=== PATIENT | female | born 1960 | race Caucasian/White ===

== ENCOUNTER 2016-12-15 18:41 | Emergency (ER) | payer BC ==
[~2016-12-15] VITALS: Ht 162.6 cm; Wt 68.0 kg
[~2016-12-15 18:41] MED LIST: ALPR1TAB3 PO; CREON6 PO; FAMO20 PO; FLON0.053; GABA600T PO; GAS125CH PO; HYDR-3580 PO; MILKSUS5 PO; ONDA1TAB17 PO; PROT40TA PO; SENN1TAB11 PO; SUVO1TAB4 PO; TIZA4 PO
[2016-12-15 18:49] VITALS: BP 139/63; PULSE 61; RESP 16; TEMP 98.1; O2SAT 97
[2016-12-15] MEDS ORDERED: SODIUM CHLOR 0.9% 1000 ML INJ 1,000 ML IV SCH (19:20)
[2016-12-15] MEDS ORDERED: LIDOCAINE VISCOUS 2% SOLN 15 ML UDC PO ONE (19:30)
[2016-12-15] MEDS ORDERED: MORPHINE SULFATE 8 MG/ML INJ IV PUSH ONE (19:30)
[2016-12-15] MEDS ORDERED: ALUMINUM/MAGNESIUM/SIMETH 30 ML CUP PO ONE (19:30)
[2016-12-15] MEDS ORDERED: SODIUM CHLORIDE 0.9% FLUSH 10 ML FLUSH IV FLUSH PRN (19:30)
[2016-12-15] MEDS ORDERED: ONDANSETRON HCL 4 MG/2 ML VIAL IVP ONE (19:30)
[2016-12-15 19:32] VITALS: BP 148/64; PULSE 60; RESP 18; O2SAT 98
[2016-12-15] MEDS ORDERED: HYDR-3580 PO (19:32)
[2016-12-15] MEDS ORDERED: SUVO1TAB4 PO (19:32)
[2016-12-15] MEDS ORDERED: ZOFR4TAB PO (19:32)
[2016-12-15] MEDS ORDERED: FLUT1SPR5 EACH NARE (19:32)
[2016-12-15] MEDS ORDERED: FAMO1TAB37 PO (19:32)
[2016-12-15] MEDS ORDERED: CREO3000 PO (19:32)
[2016-12-15] MEDS ORDERED: PROT40TA PO (19:32)
[2016-12-15] MEDS ORDERED: SENN8.6T36 PO (19:32)
[2016-12-15] MEDS ORDERED: ZANA4CAP PO (19:32)
[2016-12-15] MEDS ORDERED: ALPR1TAB3 PO (19:32)
[2016-12-15] MEDS ORDERED: GABA600T PO (19:32)
[2016-12-15 19:38] LABS: AUTOMATED NEUTROPHIL # 6.7 TH/MM3 (1.8-7.7); BASOPHIL # 0.1 TH/MM3 (0-0.2); BASOPHIL % 0.8 % (0.0-2.0); EOSINOPHIL # 0.1 TH/MM3 (0-0.4); EOSINOPHIL % 1.4 % (0.0-4.0); HEMATOCRIT 33.4 % (35.0-46.0); LYMPHOCYTE # 2.1 TH/MM3 (1.0-4.8); MEAN CORPUSCULAR HEMOGLOBIN 22.9 PG (27.0-34.0); MEAN CORPUSCULAR HGB CONC 31.8 % (32.0-36.0); MONO % 4.8 % (0.0-8.0); PLATELET COUNT 362 TH/MM3 (150-450); RED BLOOD COUNT 4.63 MIL/MM3 (4.00-5.30); RED CELL DISTRIBUTION WIDTH 16.9 % (11.6-17.2); WHITE BLOOD COUNT 9.5 TH/MM3 (4.0-11.0)
[2016-12-15 19:41] LABS: HEMO FLAGS AUTO DIFF
[2016-12-15 19:56] LABS: CHLORIDE 106 MEQ/L (98-107); POTASSIUM 3.6 MEQ/L (3.5-5.1); SODIUM (NA) 141 MEQ/L (136-145)
[2016-12-15 20:00] LABS: ANION GAP 9 MEQ/L (5-15); BICARBONATE 26.5 MEQ/L (21.0-32.0)
[2016-12-15 20:01] LABS: BLOOD UREA NITROGEN 13 MG/DL (7-18)
[2016-12-15 20:03] LABS: ALT (GPT) 48 U/L (10-53); AST (GOT) 35 U/L (15-37); GLOMERULAR FILTRATION RATE 81 ML/MIN (>89)
[2016-12-15 20:05] LABS: TOTAL BILIRUBIN ADULT 0.3 MG/DL (0.2-1.0)
[2016-12-15 20:06] LABS: ALKALINE PHOSPHATASE 157 U/L (45-117)
[2016-12-15 20:21] LABS: PLATELET ESTIMATE SMEAR NORMAL (NORMAL); PLATELET MORPHOLOGY NORMAL (NORMAL); SCAN/DIFF AUTO DIFF CONFIRMED
[2016-12-15 20:53] LABS: GLUCOSE,URINE NEG (NEG); KETONE, URINE NEG (NEG); NITRITE,URINE NEG (NEG)
[2016-12-15 20:59] LABS: BLOOD, URINE TRACE (NEG)
[2016-12-15 21:01] LABS: METHOD OF COLLECTION CLEAN CATCH
[2016-12-15 21:02] LABS: WBC, URINE 0-2 /hpf (0-5)
[2016-12-15 21:03] LABS: COMMENT (UR) CULT NOT INDICATED; CULTURE IF INDICATED CULT NOT INDICATED; SQUAMOUS EPITHELIAL CELL URINE 0-2 /hpf (0-5)
[2016-12-15 21:15] VITALS: BP 148/69; PULSE 66; RESP 18; O2SAT 98
--- NOTE | 2016-12-15 21:21 | PD ---
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 no vomiting or fever. "pain pills" at home relieved pain marginally. timing constant. severity mild. quality is like "punching" in the gut. duration of nausea 3 days. PFSH Past Medical History Hx Anticoagulant Therapy: No Asthma: No Autoimmune Disease: No Anxiety: Yes Depression: No Heart Rhythm Problems: No Cancer: No Cardiovascular Problems: No High Cholesterol: No Chemotherapy: No Chest Pain: No Congestive Heart Failure: No COPD: No Cerebrovascular Accident: No Diabetes: No Diminished Hearing: No Endocrine: No Gastrointestinal Disorders: Yes GERD: Yes Genitourinary: No Headaches: No Hiatal Hernia: No Hypertension: No Immune Disorder: No Implanted Vascular Access Dvce: No Kidney Stones: No Musculoskeletal: Yes Neurologic: Yes Psychiatric: Yes Reproductive: No Respiratory: Yes (Allergies) Immunizations Current: Yes Migraines: No Pancreatitis: Yes Radiation Therapy: No Renal Failure: No Seizures: Yes Sleep Apnea: No Thyroid Disease: No Ulcer: No Tetanus Vaccination: Unknown Influenza Vaccination: Yes ?: Not Menopausal: Yes Tubal Ligation: Yes Past Surgical History Abdominal Surgery: Yes (LAP DENISE IN 04/2011 THEN ABD RECONSTRUCTION@ [facility] 06/07) Arteriovenous Shunt: No Cardiac Surgery: No Section: Yes (X 2) Cholecystectomy: Yes (APRIL/2011) Ear Surgery: No Eye Surgery: No Genitourinary Surgery: No Gynecologic Surgery: Yes (UTERINE ABLATION ) Hysterectomy: No Insulin Pump: No Joint Replacement: No Neurologic Surgery: No Oral Surgery: No Pacemaker: No Thoracic Surgery: No Other Surgery: Yes (JULIA-EN-Y, R AND LEFT GANGLION CYST) Social History Alcohol Use: No Tobacco Use: No (NEVER) Substance Use: No Allergies-Medications (Allergen,Severity, Reaction): Coded Allergies: Sulfa (Sulfonamide Antibiotics) (Unverified Allergy, Severe, RASH, ) codeine (Unverified Allergy, Severe, HYPER, 12/15/16) adhesive (Unverified Allergy, Intermediate, RASH, 12/15/16) *MDRO Multi-Drug Resistant Organism (Unverified Adverse Reaction, Unknown , 12/15/16) 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 Reported Meds & Prescriptions Reported Meds & Active Scripts Active Reported Zanaflex (Tizanidine HCl) 4 Mg Cap 4 Mg PO TID Belsomra (Suvorexant) 20 Mg Tab 20 Mg PO HS Protonix (Pantoprazole Sodium) 40 Mg Tab 40 Mg PO DAILY Zofran (Ondansetron HCl) 4 Mg Tab 4 Mg PO Q8HR PRN Creon (Pancrelipase) 3,000-9,500-15,000 Units Cap 1 Cap PO TIDPC Hydrocodone-Acetaminophen 7.5-325 mg Tab 1 Tab PO Q6H PRN Gabapentin 600 Mg Tab 600 Mg PO TID Flonase Nasal [place] (Fluticasone Nasal [place]) 50 Mcg/Act [place] 50 Mcg EACH NARE BID Pepcid (Famotidine) 20 Mg Tab 20 Mg PO HS Senna-Tabs (Sennosides) 8.6 Mg Tab 8.6 Mg PO BID Alprazolam 1 Mg Tab 1 Mg PO BID PRN Review of Systems Except as stated in HPI: all other systems reviewed are Neg General / Constitutional: No: Fever Physical Exam Narrative GENERAL: 56 yo F wnwd, mild distress 2/2 pain, pleasant SKIN: Warm and dry. HEAD: Atraumatic. Normocephalic. EYES: Pupils equal and round. No scleral icterus. No injection or drainage. ENT: No nasal bleeding or discharge. Mucous membranes pink and moist. NECK: Trachea midline. No JVD. CARDIOVASCULAR: Regular rate and rhythm. RESPIRATORY: No accessory muscle use. Clear to auscultation. Breath sounds equal bilaterally. GASTROINTESTINAL: Soft. minimal TTP epigastrium. MUSCULOSKELETAL: Extremities without clubbing, cyanosis, or edema. No obvious deformities. NEUROLOGICAL: Awake and alert. No obvious cranial nerve deficits. Motor grossly within normal limits. Five out of 5 muscle strength in the arms and legs. Normal speech. PSYCHIATRIC: Appropriate mood and affect; insight and judgment normal. Data Data Last Documented VS Vital Signs Date Time Temp Pulse Resp B/P (MAP) Pulse Ox O2 Delivery O2 Flow Rate FiO2 12/15/16 21:15 66 18 148/69 (95) 98 Room Air 12/15/16 18:49 98.1 VS reviewed Orders Orders Complete Blood Count With Diff (12/15/16 19:20) Comprehensive Metabolic Panel (12/15/16 19:20) Lipase (12/15/16 19:20) Iv Access Insert/Monitor (12/15/16 19:20) Ecg Monitoring (12/15/16 19:20) Oximetry (12/15/16 19:20) Ondansetron Inj (Zofran Inj) (12/15/16 19:30) Sodium Chlor 0.9% 1000 Ml Inj (Ns 1000 M (12/15/16 19:20) Sodium Chloride 0.9% Flush (Ns Flush) (12/15/16 19:30) Morphine Inj (Morphine Inj) (12/15/16 19:30) Al-Mag Hy-Si 40-40-4 Mg/Ml Liq (Mag-Al P (12/15/16 19:30) Lidocaine 2% Viscous (Xylocaine 2% Visco (12/15/16 19:30) Urinalysis - C+S If Indicated (12/15/16 20:31) Ed Discharge Order (12/15/16 21:19) Labs Laboratory Tests Test 12/15/16 19:30 12/15/16 20:45 White Blood Count 9.5 TH/MM3 Red Blood Count 4.63 MIL/MM3 Hemoglobin 10.6 GM/DL Hematocrit 33.4 % Mean Corpuscular Volume 72.0 FL Mean Corpuscular Hemoglobin 22.9 PG Mean Corpuscular Hemoglobin Concent 31.8 % Red Cell Distribution Width 16.9 % Platelet Count 362 TH/MM3 Mean Platelet Volume 7.5 FL Neutrophils (%) (Auto) 71.0 % Lymphocytes (%) (Auto) 22.0 % Monocytes (%) (Auto) 4.8 % Eosinophils (%) (Auto) 1.4 % Basophils (%) (Auto) 0.8 % Neutrophils # (Auto) 6.7 TH/MM3 Lymphocytes # (Auto) 2.1 TH/MM3 Monocytes # (Auto) 0.5 TH/MM3 Eosinophils # (Auto) 0.1 TH/MM3 Basophils # (Auto) 0.1 TH/MM3 CBC Comment AUTO DIFF Differential Comment AUTO DIFF CONFIRMED Platelet Estimate NORMAL Platelet Morphology Comment NORMAL Blood Urea Nitrogen 13 MG/DL Creatinine 0.74 MG/DL Random Glucose 95 MG/DL Total Protein 7.4 GM/DL Albumin 3.8 GM/DL Calcium Level 8.9 MG/DL Alkaline Phosphatase 157 U/L Aspartate Amino Transf (AST/SGOT) 35 U/L Alanine Aminotransferase (ALT/SGPT) 48 U/L Total Bilirubin 0.3 MG/DL Sodium Level 141 MEQ/L Potassium Level 3.6 MEQ/L Chloride Level 106 MEQ/L Carbon Dioxide Level 26.5 MEQ/L Anion Gap 9 MEQ/L Estimat Glomerular Filtration Rate 81 ML/MIN Lipase 146 U/L Urine Collection Type CLEAN CATCH Urine Color NONE Urine Turbidity CLEAR Urine pH 6.0 Urine Specific [place] 1.005 Urine Protein NEG mg/dL Urine Glucose (UA) NEG mg/dL Urine Ketones NEG mg/dL Urine Occult Blood TRACE Urine Nitrite NEG Urine Bilirubin NEG Urine Leukocyte Esterase NEG Urine WBC 0-2 /hpf Urine Squamous Epithelial Cells 0-2 /hpf Microscopic Urinalysis Comment CULT NOT INDICATED MDM Medical Decision Making Medical Screen Exam Complete: Yes Emergency Medical Condition: Yes Medical Record Reviewed: Yes Differential Diagnosis Gastritis, pancreatitis, appendicitis, acute cholecystitis, ascending cholangitis, AAA, perforated viscous, mesenteric ischemia, hepatitis, cystitis, hydronephrosis/hydroureter/nephroureter calculus, mesenteric adenitis, biliary colic Narrative Course CBC & BMP Diagram 12/15/16 19:30 Total Protein 7.4, Albumin 3.8, Calcium Level 8.9, Alkaline Phosphatase 157 H, Aspartate Amino Transf (AST/SGOT) 35, Alanine Aminotransferase (ALT/SGPT) 48, Total Bilirubin 0.3 Urinalysis shows no UTI The patient is resting comfortably and feels better, is alert and in no distress. The patients results and examination findings were discussed. The repeat examination is unremarkable and benign. The history, exam, diagnostic testing, and current condition do not suggest any significant pathology to warrant further testing, continued ED treatment, admission, or surgical evaluation at this point. The vital signs have been stable. The patient does not have uncontrollable pain, intractable vomiting, or other significant symptoms. The patient's condition is stable and appropriate for discharge. The patient will pursue further outpatient evaluation with a primary care physician or other designated or consulting physician as indicated in the discharge instructions. The patient expressed understanding and was agreeable with this plan. Diagnosis Primary Impression: Nausea Additional Impression: Epigastric abdominal pain Referrals: Primary Care Physician 2 days Additional Instructions: You have a choice when it comes to health care, and we are glad that you chose [facility]. Hopefully, we have met your expectations on today's visit. You are welcome to return to [facility] at any time, as we are committed to meeting the health care needs of our community. Med/Other Pt SpecificInfo: No Change to Meds Disposition: 01 DISCHARGE HOME Condition: Kaden Hsieh MD Dec 15, 2016 21:21
== END 2016-12-15 22:13 | disposition home or self-care (01) ==
LOC: PHED 18:41
DX: R11.0 Nausea (principal)
CPT/HCPCS: 80053; 81001; 83690; 85025; 96361; 96374; 99284; J2405; J7030